=== PATIENT | male | born 1945 | race Caucasian/White ===

== ENCOUNTER 2018-01-08 07:47 | Outpatient (CLI) | payer MEDICARE, BC ==
[~2018-01-08] VITALS: Ht 177.8 cm; Wt 80.9 kg
--- NOTE | ~2018-01-08 | HEMODYNAMI ---
PATIENT:NIKKY MALIK MEDICAL RECORD: [id number] : 41 LOCATION:[facility] ADMISSION DATE: 01/08/18 Generatedon:01/08/201810:00 Patient name: NIKKY MALIK Patient #: [id number] SSN: : 1945 Date of study: 01/08/2018 Page: Of Hemodynamic Procedure Report Patient Data Patient Demographics Procedure consent was obtained First Name: NIKKY Gender: Male Last Name: KING : 1945 [facility] Initial: RON Age: 72 year(s) Patient #: [id number] Race: Unknown Additional ID: [id number] Contact details Address: [address] [place] [address] ROAD State: [place] City: [place] Zip code: [address] Past Medical History Allergies Allergen Reaction Date Comments Reported Morphine 01/08/2018 Admission Admission Data Admission Date: 01/08/2018 Admission Time: 7:47 Lab Results Lab Result Date: 01/08/2018 Lab Result Time: 0:00 Biochemistry Name Units Result Min Max BUN mg/dl 16 --(---*)-- 7 18 Creatinine mg/dl 1.2 --(---*)-- 0.6 1.3 CBC Name Units Result Min Max Hemoglobin g/dl 16 --(--*-)-- 13.5 17.5 Procedure Procedure Types Cath Procedure Diagnostic Procedure LHC LHC w/Coronaries FFR/IVUS Intra-Coronary IVUS Initial Sedation Charges Moderate Sedation up to 15 minutes PCI Procedure Coronary Stent Coronary Stent Initial Peripheral Cath Diagnostic Procedure Cath Peripheral Kcwdv-Wsfhoyu-Upy-Off Procedure Description Procedure Date Procedure Date: 01/08/2018 Procedure Start Time: 9:35 Procedure End Time: 9:56 Procedure Staff Name Function Ruben Rodriguez MD Performing Physician Pillo Lima RT Scrub Thuy Bishop RT Monitor Deja Arnett RN Nurse Procedure Data Cath Procedure Fluoroscopy Diagnostic fluoroscopy Total fluoroscopy Time: 4.5 time: 4.5 min min Diagnostic fluoroscopy Total fluoroscopy dose: 633 dose: 633 mGy mGy Contrast Material Contrast Material Type Amount (ml) Isovue 370 135 Entry Location Entry Primary Successful Side Size Upsize Upsize Entry Closure Succes sful Closure Location (Fr) 1 (Fr) 2 (Fr) Remarks Device Remarks Femoral Right 5 Fr 6 Fr Exoseal artery Short Estimated blood loss: 10 ml Diagnostic catheters Device Type Used For End Catheter Placement MULTIPACK Pigtail 5 Fr Procedure catheter MULTIPACK JL 4.0 5Fr Procedure catheter MULTIPACK 3DRC 5Fr Procedure catheter Procedure Complications No complications Procedure Medications Medication Administration Route Dosage Oxygen NC 2 l/min Lidocaine 2% added to field 20 Heparin Flush Bag added to field 2 bags (1000units/500ml NS) 0.9% NaCl I.V. 100 ml/hr Versed I.V. 1 mg Fentanyl I.V. 50 mcg Heparin Bolus I.V. 4000 units Versed I.V. 1 mg Fentanyl I.V. 50 mcg Lopressor I.V. 5 mg Nitro [place] S.L. 400 Hemodynamics Rest HGB: 16 (g/dl) Heart Rate: 73 (bpm) Snapshots Pre Cath Intra NCS Post Cath Vital Signs Time Heart Resp SPO2 etCO2 NIBP (mmHg) Rhythm Pain Sedation Rate (ipm) (%) (mmHg) Status Level (bpm) 9:23:13 80 15 100 0 192/114(180) NSR 0 (11) 10(A) , No pain 9:28:06 74 20 99 33.1 202/101(164) NSR 0 (11) 10(A) , No pain 9:33:51 73 9 99 35.3 200/95(158) NSR 0 (11) 10(A) , No pain 9:38:44 81 10 96 0 183/105(145) NSR 0 (11) 9(A) , No pain 9:44:25 93 11 98 37.6 206/99(153) NSR 0 (11) 9(A) , No pain 9:49:18 100 12 97 33.1 195/100(144) NSR 0 (11) 9(A) , No pain 9:54:09 95 14 98 14.3 197/102(145) NSR 0 (11) 9(A) , No pain 9:59:02 77 13 97 32.3 174/99(146) NSR 0 (11) 10(A) , No pain Medications Time Medication Route Dose Verified Delivered Reason Notes Effectiveness by by 9:24:09 Oxygen NC 2 Rubenraul Short used for l/min Jennifer Arnett RN procedure 9:24:17 Lidocaine 2% added 20ml Rubenraul Miranda for local to vial Jennifer Rodriguez MD anesthetic field 9:24:24 Heparin Flush added 2 bags Ruben Miranda used for Bag to Jennifer Rodriguez MD procedure (1000units/500ml field NS) 9:24:34 0.9% NaCl I.V. 100 Ruben Short Per physician ml/hr Jennifer Arnett RN 9:33:12 Versed I.V. 1 mg Ruben Short for sedation Jennifer Arnett RN 9:33:18 Fentanyl I.V. 50 mcg Ruben Short for sedation Jennifer Arnett RN 9:40:32 Versed I.V. 1 mg Ruben Short for sedation Jennifer Arnett RN 9:40:35 Fentanyl I.V. 50 mcg Ruben Short for sedation Jennifer Arnett RN 9:44:23 Heparin Bolus I.V. 4000 Ruben Short for verifi ed units Jennifer Arnett RN anticoagulation with dr rodriguez 9:54:15 Lopressor I.V. 5 mg Ruben Short for Jennifer Arnett RN hypertension 9:58:14 Nitro [place] S.L. 400 Ruben Short for 1200 m cg mcg x Jennifer Arnett RN hypertension total 3 sprays Procedure Log Time Note 9:10:25 Deja Arnett RN sent for patient. Start room use. 9:10:59 Signed procedure consent form obtained from patient. 9:11:16 H&P Date Dictated: 01/07/2018 Within 30 days and on chart., H&P Addendum completed by physician on day of procedure. (MUST COMPLETE FOR ALL OUTPATIENTS). 9:11:20 Time tracking: Regular hours (M-F 7:00 - 5:00) 9:11:23 Plan of Care:Hemodynamics will remain stable., Cardiac rhythm will remain stable., Comfort level will be maintained., Respiratory function will remain adequate., Patient/ family verbilizes understanding of procedure., Procedure tolerated without complication., Recovers from procedure without complications.. 9:16:23 Patient received from Pre/Post Procedure Room to CCL 1 Alert and oriented. Tansferred to table in Supine position. 9:16:24 Warm blankets applied, and chaka hugger turned on for patient comfort. 9:16:24 Correct patient and procedure confirmed by team. 9:16:25 ECG and BP/O2 sat monitors applied to patient. 9:21:44 Vital chart was started 9:21:45 Baseline sample Acquired. 9:21:57 Pre-procedure instructions explained to patient. 9::58 Pre-op teaching completed and patient verbalized understanding. 9:22:02 Family in patients room. 9:22:04 Patient NPO since Midnight. 9:22:11 Patient allergic to Morphine 9:22:14 Is the patient allergic to Iodine/contrast media? No. 9:24:09 Oxygen 2 l/min NC was administered by Deja Arnett RN; used for procedure; 9:24:17 Lidocaine 2% 20ml vial added to field was administered by Ruben Rodriguez MD; for local anesthetic; 9:24:24 Heparin Flush Bag (1000units/500ml NS) 2 bags added to field was administered by Ruben Rodriguez MD; used for procedure; 9:24:34 0.9% NaCl 100 ml/hr I.V. was administered by Deja Arnett RN; Per physician; 9:24:59 Is patient on blood thinner?Yes 9:25:03 ACC The patient was administered the following blood thiners within the last 24 hours: ACCPlavix 9:25:05 Patient diabetic? No. 9:26:20 Previous problem with sedation/anesthesia? No ? 9:26:21 Snore? Yes 9:26:23 Sleep apnea? No 9:26:24 Deviated septum? No 9:26:25 Opens mouth fully? Yes 9:26:26 Sticks out tongue? Yes 9:26:28 Airway obstruction? No ? 9:26:32 Dentures? Yes IN TIGHT 9:28:59 Pre procedure: right dorsailis pedis pulse 1+ Palpable, but thready & weak; easily obliterated 9:29:02 Pre procedure: left dorsailis pedis pulse 2+ Normal; easily identifiable; not easily obliterated 9:29:04 Patient pain scale 0/10 ?. 9:29:15 IV patent on arrival in left hand with 0.9% NaCl at KVO. 9:30:30 Lab Result : BUN 16 mg/dl 9:30:30 Lab Result : Creatinine 1.2 mg/dl 9:30:30 Lab Result : Hemoglobin 16 g/dl 9:30:34 Lab results completed and on chart. 9:30:37 Bilateral groins area was prepped with chlora-prep and draped in sterile fashion 9:30:38 Alarms reviewed by R. N. 9:30:39 Sharps counted by scrub and verified by R.N. 9:30:54 Use device set Femoral Dx 9:30:55 ACIST Syringe (48554) opened to sterile field. 9:30:56 Bag Decanter (2002S) opened to sterile field. 9:30:57 ACIST Hand Control (10788) opened to sterile field. 9:30:58 ACIST Manifold (94256) opened to sterile field. 9:30:58 Tegaderm 4 x 4 (1626W) opened to sterile field. 9:31:00 Medline Cath Pack ([id number]) opened to sterile field. 9:31:00 DIAGNOSTIC WIRE .035 260cm J wire (634321) opened to sterile field. 9:31:03 SHEATH Prelude 5Fr 0.035 (GXG-4B-38-035) opened to sterile field. 9:31:05 DIAGNOSTIC Multipack 5Fr catheter set (PN9335) opened to sterile field. 9:31:58 --------ALL STOP TIME OUT------ 9:31:59 Final Timeout: patient, procedure, and site verified with staff and physician. All members of the team are in agreement. 9:32:01 Bilateral groins site verified by team. 9:32:05 Physical assessment completed. ASA score P 2 - A patient with mild systemic disease as per Ruben Rodriguez MD. 9:32:09 Sedation plan: IV Moderate Sedation Medication:Versed, Fentanyl 9:32:37 Procedure type changed to Cath procedure, Diagnostic procedure, LHC, LHC w/Coronaries, FFR/IVUS, Intra-Coronary IVUS Initial, Sedation Charges, Moderate Sedation up to 15 minutes, PCI procedure, Coronary Stent, Coronary Stent Initial, Peripheral Cath Diagnostic Procedure, Cath Peripheral, Txbdg-Eatphgy-Ocn-Off 9:33:12 Versed 1 mg I.V. was administered by Buffie Arnett RN; for sedation; 9:33:18 Fentanyl 50 mcg I.V. was administered by Deja Arnett RN; for sedation; 9:34:35 Zero performed for pressure channel P1 9:34:59 Baseline sample Acquired. 9:35:09 Rhythm: sinus rhythm 9:35:11 Full Disclosure recording started 9:35:37 Procedure started. 9:35:42 Local anesthetic to right femoral artery with Lidocaine 2% by Ruben Rodriguez MD.INITIAL ACCESS ONLY 9:36:23 A 5 Fr sheath was inserted into the Right Femoral artery 9:36:46 A MULTIPACK Pigtail 5 Fr catheter was advanced over the wire and used for Procedure. 9:37:11 LV gram done using CRUZ 9:37:15 Injector settings: Ml/sec: 10, Volume: 20, 9:37:50 EF : 55 % 9:38:00 CATHETER PULLED DOWN FOR AFRO 9:38:12 Abdominal angiogram w/ runoff was performed. 9:38:29 Left leg runoff performed. 9:38:53 Right leg runoff performed. 9:40:00 Catheter removed. 9:40:10 A MULTIPACK JL 4.0 5Fr catheter was advanced over the wire and used for Procedure. 9:40:32 Versed 1 mg I.V. was administered by Deja Arnett RN; for sedation; 9:40:35 Fentanyl 50 mcg I.V. was administered by Deja Arnett RN; for sedation; 9:41:06 LCA angiography performed. 9:41:51 Catheter removed. 9:42:00 A MULTIPACK 3DRC 5Fr catheter was advanced over the wire and used for Procedure. 9:42:13 INFLATOR Merit BasixCompak (NZ4311) opened to sterile field. 9:42:18 SHEATH 6FR [place] (OTD802) opened to sterile field. 9:42:23 CHOICE PT Extra Support 182cm wire ([id number]) opened to sterile field. 9:43:03 RCA angiography performed. 9:43:12 Catheter removed. 9:43:21 GUIDE 6FR HS I SH catheter ([id number]) opened to sterile field. 9:43:27 [place] IVUS Catheter (74267Z) opened to sterile field. 9:43:34 Sheath upsized to a 6 Fr Short. 9:44:05 6 Fr HS1 SH guide catheter was inserted over the wire 9:44:23 Heparin Bolus 4000 units I.V. was administered by Deja Arnett RN; for anticoagulation; verified with dr rodriguez 9:44:55 CHOICE ES 182 wire advanced. 9:45:18 Wire advanced across lesion. 9:47:40 IVUS catheter advanced over wire. 9:47:43 IVUS pass to RCA lesion performed. 9:47:44 IVUS catheter removed over wire. 9:49:04 Place stent Inflation Number: 1 A TATE RX 3.0 x 38 stent ([id number]) was prepped and advanced across the Mid RCA. The stent was deployed at 21 VALERI for 0:10 (min:sec). 9:49:40 Stent catheter was removed intact over wire. 9:50:49 Place stent Inflation Number: 1 A TATE RX 3.0 x 22 stent ([id number]) was prepped and advanced across the Prox RCA. The stent was deployed at 21 VALERI for 0:10 (min:sec). 9:51:28 Stent catheter was removed intact over wire. 9:51:28 Wire removed. 9:51:29 Guide catheter removed. 9:53:26 EXOSEAL 6Fr (EX600) opened to sterile field. 9:53:40 Sheath removed intact; hemostasis achieved with Exoseal to the Right Femoral artery. 9:53:43 Procedure ended.(Physican Out) 9:53:52 Fluoroscopy time 04.50 minutes. 9:53:58 Fluoroscopy dose: 633 mGy 9:53:58 Flurop Dose total: 633 9:54:03 Contrast amount:Isovue 370 135ml. 9:54:04 Sharps counted by scrub and verified by R.N. 9:54:07 Post-op/insertion site Right Femoral artery dressed using a 4 x 4 and Tegaderm. 9:54:12 Post right femoral artery:stable, soft, clean and dry 9:54:15 Lopressor 5 mg I.V. was administered by Deja Arnett RN; for hypertension; 9:54:21 Post-procedure physical assessment completed. ASA score P 2 - A patient with mild systemic disease as per Ruben Rodriguez MD. 9:54:27 Post procedure rhythm: unchanged. 9:54:29 Estimated blood loss: 10 ml 9:54:31 Post procedure instruction explained to patient.Patient verbalizes understanding. 9:54:31 Patient needs reinforcement of post procedure teaching. 9:56:22 Procedure and supply charges have been captured, reviewed, submitted and are correct. 9:56:24 Procedure Complication : No complications 9:56:26 Vital chart was stopped 9:56:27 See physician's report for complete and final results. 9:56:29 Report given to Pre/Post Procedure Room. 9:56:32 Patient transfered to Pre/Post Procedure Room with Bed. 9:56:34 Procedure ended. 9:56:34 Full Disclosure recording stopped 9:56:37 End room use (Document Last) 9:58:14 Nitro [place] 400 mcg x 3 sprays S.L. was administered by Deja Arnett RN; for hypertension; 1200 mcg total Intervention Summary Intervention Notes Time ActionType Lesion and Equipment Used Action# Pressure Duration Attributes 9:49:04 Place stent Mid RCA TATE RX 3.0 x 1 21 00:10 38 stent ([id number]) 9:50:49 Place stent Prox RCA TATE RX 3.0 x 1 21 00:10 22 stent ([id number]) Device Usage Item Name Manufacture Quantity Catalog Number Hospital Part Current Minimal Lot# / Charge Number Stock Stock Serial# Code ACIST Syringe Acist 1 00457 984113 120952 146933 20 (38860) Medical Systems Inc Bag Decanter Microtek 1 2001S 687477 94516 803595 5 (2001S) Medical Inc. ACIST Hand Acist 1 36243 328905 553984 535400 5 Control (24002) Medical Systems Inc ACIST Manifold Acist 1 02187 311242 037312 230842 5 (13230) Medical Systems Inc Tegaderm 4 x 4 3M 1 1626W 972772 848583 990730 5 (1626W) Medline Cath Cardinal 1 [id number] 302879 01418 298720 5 Pack Health ([id number]) DIAGNOSTIC WIRE [facility] [place] 1 067841 741765 694186 846381 30 .035 260cm J wire (528423) SHEATH Prelude Merit 1 XYB-6M-89-035 057333 378218 397496 5 5Fr 0.035 Medical (CZX-3C-68-035) DIAGNOSTIC Cardinal 1 JE0786 426636 71254 604804 30 Multipack 5Fr Health catheter set (UI5362) MULTIPACK Cardinal 1 298992 5 Pigtail 5 Fr Health catheter MULTIPACK JL Cardinal 1 657392 5 4.0 5Fr Health catheter MULTIPACK 3DRC Cardinal 1 876060 5 5Fr catheter Health INFLATOR Merit Merit 1 QJ5511 366355 848615 815177 15 InContext Solutions Medical (BA4229) SHEATH 6FR Terumo 1 UXO640 344358 536238 308562 40 [place] (NVG284) CHOICE PT Extra [place] 1 [id number] 598993 466478 029547 5 Support 182cm Scientific wire ([id number]) GUIDE 6FR HS I Medtronic 1 [id number] 683272 14229 724146 1 SH catheter (ZA6EVIVU) [place] 1 00280U 707392 378009 232050 8 [place] IVUS Catheter (98666D) TATE RX 3.0 x Medtronic 1 [id number] 966361 6460040 782103 5 [id number] 38 stent ([id number]) TATE RX 3.0 x Medtronic 1 [id number] 208064 9996679 901581 5 [id number] 22 stent ([id number]) EXOSEAL 6Fr Cardinal 1 EX600 409627 983366 902441 10 (EX600) Health Signature Audit [place] Stage Time Signature Unsigned Intra-Procedure 01/08/2018 Thuy Bishop 10:00:16 AM RT(R) Signatures Monitor : Thuy Bishop Signature : RT Date : Time : [facility] [address] [place] [address]
--- NOTE | ~2018-01-08 | OP ---
PATIENT NAME: NIKKY MALIK MEDICAL RECORD: [id number] :41 LOCATION:D.CAT ADMISSION DATE: SURGEON: ELIZABETH ENGLISH MD DATE OF OPERATION: 01/08/2018 PROCEDURES: 1. PTCA stent RCA. 2. Intravascular ultrasound. 3. Left heart catheterization. 4. Selective angiography. 5. Left ventriculogram. INDICATION: Angina and coronary artery disease. PROCEDURE IN DETAIL: After informed consent was obtained and after a detailed description of the risks, benefits as well as alternative therapies, the patient elected to proceed with angiogram and angioplasty. The right femoral area was prepped and draped in normal sterile fashion. The right femoral artery was cannulated via modified Seldinger technique with placement of 6-Cypriot sheath. All catheters exchanged through this sheath. FINDINGS: The left ventriculogram was performed in standard 30-degree CRUZ view, reveals good cardiac wall motion throughout all segments. Overall ejection fraction estimated at 55% to 60%. SELECTIVE CORONARY ANGIOGRAPHY: 1. Left main is with no significant angiographic disease. 2. Left anterior descending has a long area of 80% stenosis in the mid vessel. 3. Left circumflex has moderate irregularities, but no flow-limiting stenosis. 4. Right coronary artery has a long area of 70% to 80% stenosis throughout the proximal and mid vessel. PTCA STENT OF THE RCA: Stents used were 3.0 x 38 and 3.0 x 22 both Robert stents. Result was 0% residual stenosis. OVERALL IMPRESSION: Successful PTCA stent of the RCA going from 80% initial stenosis to 0% residual. PLAN: For MOTOR EQUIPMENT LIEUTENANT stent of the LAD in the near future. TRANSINT:[id number] Voice Confirmation ID: [id number] DOCUMENT ID: [id number] ELIZABETH ENGLISH MD at 1730 CC: [id number] DICTATION DATE: 01/08/18 1002 URBAN DESIGNER: 01/08/18 1232 DEP CLI 01/08/[address] [address]
--- NOTE | ~2018-01-08 | OP ---
PATIENT NAME: NIKKY MALIK MEDICAL RECORD: [id number] :41 LOCATION:D.CAT ADMISSION DATE: SURGEON: ELIZABETH ENGLISH MD DATE OF OPERATION: 01/08/2018 PROCEDURES: 1. Aortofemoral runoff. 2. Abdominal aortography. INDICATION: Claudication and peripheral vascular disease. PROCEDURE IN DETAIL: After informed consent was obtained and after a detailed description of risks, benefits as well as alternative therapies, the patient elected to proceed with angiogram and aortofemoral runoff. The right femoral area had a preexisting sheath from coronary intervention. All catheters exchanged through this sheath. FINDINGS: Abdominal aortography was performed. The catheter was pulled down for aortofemoral runoff. Abdominal aortography reveals no significant abdominal aortic disease, no dissection or aneurysmal formation. No evidence of renal artery stenosis. RIGHT LEG: A. Iliac: The common internal and external iliacs have moderate irregularities, but no flow-limiting stenosis. B. Femoral system: The common superficial and deep femoral have moderate irregularities, but no flow-limiting stenosis. C. Popliteal and infrapopliteal vessels are widely patent. There is 3-vessel runoff to the foot, although mildly diffusely diseased. LEFT LEG: A. Iliac: The common internal and external iliacs have moderate irregularities, but no flow-limiting stenosis. B. Femoral system: The common superficial and deep femoral have moderate irregularities, but no flow-limiting stenosis. C. Popliteal and infrapopliteal vessels are widely patent. There is 3-vessel runoff to the foot, although mildly diffusely diseased. OVERALL IMPRESSION: Minimal peripheral vascular disease is present. No flow limiting stenosis, leg pain is nonarteriovascular in etiology. TRANSINT:[id number] Voice Confirmation ID: [id number] DOCUMENT ID: [id number] ELIZABETH ENGLISH MD at 1730 CC: [id number] DICTATION DATE: 01/08/18 1002 WOOD PLANER: 01/08/18 1232 DEP CLI 01/08/18 [place] [id number] [place] [id number]
[2018-01-08 08:30] VITALS: Ht 177.8 cm; Wt 80.9 kg
[2018-01-08 08:38] LABS: BASOPHILS 0.9 % (0-2); EOSINOPHILS 2.7 % (0-7); HEMATOCRIT 45.6 % (42.0-54.0); IMMATURE GRANULOCYTES 0.3 % (0-5); LYMPHOCYTES 28.4 % (15-50); MCH 31.6 pg (26.0-34.0); MCHC 35.1 g/dL (31.0-37.0); MCV 90.1 fL (80.0-100.0); MEAN PLATELET VOLUME 10.3 fL (7.4-10.4); MONOCYTES 6.6 % (2-11); NEUTROPHILS 61.1 % (40-80); PLATELET COUNT 218 10x3/uL (130-400); RBC 5.06 10x6/uL (4.20-6.10); RDW 13.2 % (11.5-14.5); WBC 7.5 10x3/uL (4.8-10.8)
[2018-01-08] MEDS ORDERED: COZAAR25 MG PO (08:38)
[2018-01-08] MEDS ORDERED: CARDURA4 MG PO (08:38)
[2018-01-08] MEDS ORDERED: BAYER CHEWABLE81 MG PO (08:39)
[2018-01-08] MEDS ORDERED: PAMELOR10 MG PO (08:39)
[2018-01-08] MEDS ORDERED: PRILOSEC2.5 MG PO (08:39)
[2018-01-08] MEDS ORDERED: MAG-OXIDE400 MG PO (08:40)
[2018-01-08 08:47] LABS: ANION GAP 13.9 mmol/L (8-16); CALCIUM 8.6 mg/dL (8.5-10.1); CARBON DIOXIDE 25.8 mmol/L (21.0-32.0); CREATININE - SERUM 1.2 mg/dL (0.6-1.3); POTASSIUM - SERUM 3.7 mmol/L (3.5-5.1)
[2018-01-08] MEDS ORDERED: PLAVIX75 MG PO (09:47)
[2018-01-08] MEDS ORDERED: NIFEDIPINE ER90 MG PO (10:28)
[2018-01-08] MEDS ORDERED: TOPROL XL100 MG PO (10:28)
== END 2018-01-08 14:00 | disposition home or self-care (01) ==
LOC: D.CATH 07:47 → EDBD 07:47 → D.CATH 10:00
PROVIDERS: Internal Medicine Interventional Cardiology
DX: I25.119 Atherosclerotic heart disease of native coronary artery with unspecified angina pectoris (principal); M79.605 Pain in left leg; M79.604 Pain in right leg; Z01.812 Encounter for preprocedural laboratory examination
CPT/HCPCS: 92978; 93458; C9600

== ENCOUNTER → 2018-01-11 08:53 | Outpatient (CLI) | payer MEDICARE, BC ==
[~2018-01-11] VITALS: Ht 177.8 cm; Wt 80.9 kg
--- NOTE | ~2018-01-11 | HP ---
PATIENT: NIKKY PELAEZ MEDICAL RECORD: [id number] ACCOUNT: [id number] LOCATION:NOAH : 41 ADMISSION DATE: 01/11/18 HISTORY AND PHYSICAL EXAMINATION ADMITTING DIAGNOSES: 1. Angina. 2. Coronary artery disease. 3. Recent percutaneous transluminal coronary angioplasty stent of the right coronary artery with concomitant disease of the left anterior descending. HISTORY OF PRESENT ILLNESS: Mr. Pelaez presents with anginal symptomatology, found to have 2-vessel coronary artery disease of the RCA and LAD and underwent successful PTCA stent of the RCA, now brought back for PTCA stent of the LAD. REVIEW OF SYSTEMS: The patient reports easy bruising but reports no swollen glands. The patient reports no fever, no night sweats, no significant weight gain, no significant weight loss. No significant exercise tolerance. The patient reports no dry eyes, no irritation, no vision change. Patient reports no difficulty hearing and no ear pain. Patient reports no frequent nose bleeds or nose and sinus problems. Patient reports on arm pain on exertion. No shortness of breath while lying down. No history of heart murmur. Patient reports no cough, no wheezing or coughing up blood. Patient reports no abdominal pain, no vomiting. Normal appetite. No diarrhea and not vomiting blood. No nausea and no constipation. Patient reports no incontinence. No difficulty urinating. No hematuria. No increased frequency. Patient reports no muscle aches. No weakness, no arthralgias, no back pain. No swelling of the extremities. Patient reports no abnormal mole, no jaundice, no rashes. Reports no loss of consciousness. No weakness and no numbness. No seizures, dizziness, or headaches. The patient reports no depression, no sleep disturbance, feeling safe in a relationship and no alcohol abuse. Patient reports on fatigue. Reports no runny nose or sinus pressure. No itching, no hives, and no frequent sneezing. PHYSICAL EXAMINATION: GENERAL APPEARANCE: Well-nourished, well-developed, appears stated age. Level of distress, comfortable. PSYCHIATRIC: Mental status, alert, normal affect. Orientation, oriented to time, place and person. EYES: Lids and conjunctiva, noninjected. No discharge, no pallor. ENT: Lips, teeth, gums, normal dentition. Oropharynx, no cyanosis, no pallor. NECK: Carotid arteries, bilateral normal upstroke, no bruits, no thrills. JUGULAR VEINS: No jugular venous pressure or distention. CERVICAL LYMPH NODES: Nontender, nonenlarged. THYROID: Not enlarged. Nontender. No nodules. LUNGS: Respiratory effort, unlabored. CHEST: Normal curvature. No thoracic deformity. No chest wall tenderness. Percussion, resonant. Auscultation, clear. No wheezes, no rales, no rhonchi. CARDIOVASCULAR: Precordial exam, nondisplaced. No heaves or pericardial thrills. Rate and rhythm, regular. Heart sounds, normal S1, normal S2. No S3, no gallop, no rub. Systolic murmur, not heard. Diastolic murmur, not heard. EXTREMITIES: No cyanosis, no edema. Peripheral pulses, full and equal in all extremities, except as noted. No bruits appreciated. ABDOMEN: Soft, nondistended. Normal aorta. No bruit. Nontender. No masses. Liver, nontender, no hepatomegaly. Spleen, nontender, no splenomegaly. HISTORY AND PHYSICAL [id number] NIKKY PELAEZ MUSCULOSKELETAL: No joint tenderness. No joint swelling. No erythema. NEUROLOGICAL: Normal gait, normal strength, normal tone. SKIN: Warm and dry. OVERALL IMPRESSION: Significant disease of the left anterior descending. We will proceed with transcatheter revascularization of the left anterior descending. TRANSINT:[id number] Voice Confirmation ID: [id number] DOCUMENT ID: [id number] ELIZABETH ENGLISH MD at 1630 CC: [id number] DICTATION DATE: 01/11/18 0847 SHOW HOST OR HOSTESS: 01/11/18 0917 [facility] CLI 01/11/18 [place] [id number]
--- NOTE | ~2018-01-11 | OP ---
PATIENT NAME: NIKKY MALIK MEDICAL RECORD: [id number] :41 LOCATION:D.CAT ADMISSION DATE: SURGEON: ELIZABETH ENGLISH MD DATE OF OPERATION: 01/11/2018 PROCEDURES: 1. PTCA stent LAD. 2. Intravascular ultrasound of the LAD. 3. Selective coronary angiography. INDICATION: Angina and coronary artery disease. PROCEDURE IN DETAIL: After informed consent was obtained and after a detailed description of the risks, benefits as well as alternative therapies, the patient elected to proceed with angiogram and angioplasty. The right radial area was prepped and draped in normal sterile fashion. Right radial artery was cannulated via modified Seldinger technique with placement of 6-Korean sheath. All catheters exchanged through this sheath. FINDINGS: The left anterior descending has a long area of greater than 70% stenosis in the mid vessel. This was addressed with a 3.0 x 38 mm Paul stent. Result was 0% residual stenosis. OVERALL IMPRESSION: Successful percutaneous transluminal coronary angioplasty stent of the left anterior descending going from greater than 70% initial stenosis confirmed by intravascular ultrasound to 0% residual stenosis. TRANSINT:[id number] Voice Confirmation ID: [id number] DOCUMENT ID: [id number] ELIZABETH ENGLISH MD at 1630 CC: [id number] DICTATION DATE: 01/11/18 1126 INTERNET MARKETING MANAGER: 01/11/18 1211 DEP CLI 01/11/18 [facility] [address] [place] [address]
--- NOTE | ~2018-01-11 | HEMODYNAMI ---
PATIENT:NIKKY MALIK MEDICAL RECORD: [id number] : 41 LOCATION:[facility]UL[facility] ADMISSION DATE: 01/11/18 Generatedon:01/11/201811:27 Patient name: NIKKY MALIK Patient #: [id number] SSN: : 1945 Date of study: 01/11/2018 Page: Of Hemodynamic Procedure Report Patient Data Patient Demographics Procedure consent was obtained First Name: NIKKY Gender: Male Last Name: KING : 1945 [facility] Initial: RON Age: 72 year(s) Patient #: [id number] Race: Unknown Additional ID: [id number] Contact details Address: [address] [place] [address] ROAD State: [place] City: [place] Zip code: [address] Past Medical History Allergies Allergen Reaction Date Comments Reported Morphine 01/08/2018 Admission Admission Data Admission Date: 01/11/2018 Admission Time: 8:53 Admit Source: Other Lab Results Lab Result Date: 01/08/2018 Lab Result Time: 0:00 Biochemistry Name Units Result Min Max BUN mg/dl 16 --(---*)-- 7 18 Creatinine mg/dl 1.2 --(---*)-- 0.6 1.3 CBC Name Units Result Min Max Hemoglobin g/dl 16 --(--*-)-- 13.5 17.5 Procedure Procedure Types Cath Procedure Diagnostic Procedure FFR/IVUS Intra-Coronary IVUS Initial PCI Procedure Coronary Stent Coronary Stent Initial Procedure Description Procedure Date Procedure Date: 01/11/2018 Procedure Start Time: 11:15 Procedure End Time: 11:27 Procedure Staff Name Function Ruben Rodriguez MD Performing Physician Debra Gonzales RT Monitor Pillo Lima RT Scrub James Franco RN Nurse Procedure Data Cath Procedure Fluoroscopy Diagnostic fluoroscopy Total fluoroscopy Time: 3 time: 3 min min Diagnostic fluoroscopy Total fluoroscopy dose: 389 dose: 389 mGy mGy Contrast Material Contrast Material Type Amount (ml) Isovue 370 58 Entry Location Entry Primary Successful Side Size Upsize Upsize Entry Closure Ordonez ccessful Closure Location (Fr) 1 (Fr) 2 (Fr) Remarks Device Remarks Radial Right 6 Fr Mechanical artery Short Compression Estimated blood loss: 5 ml Procedure Complications No complications Procedure Medications Medication Administration Route Dosage Oxygen etCO2 Nasal cannula 2 l/min Heparin Flush Bag added to field 2 bags (1000units/500ml NS) 0.9% NaCl I.V. 100 ml/hr Radial Cocktail added to field 1 syringe (Verapomil 2mg/Nitro 400mcg/Heparin 1500units) Fentanyl I.V. 50 mcg Versed I.V. 1 mg Fentanyl I.V. 50 mcg Versed I.V. 1 mg Radial Cocktail I.A. 1 syringe (Verapomil 2mg/Nitro 400mcg/Heparin 1500units) Heparin Bolus I.V. 4000 units Hemodynamics Rest HGB: 16 (g/dl) Heart Rate: 96 (bpm) Snapshots Pre Cath Intra NCS Post Cath Vital Signs Time Heart Resp SPO2 etCO2 NIBP (mmHg) Rhythm Pain Sedation Rate (ipm) (%) (mmHg) Status Level (bpm) 10:50:07 95 16 98 25.5 183/76(131) NSR 0 (11) 10(A) , No pain 10:54:29 90 17 98 25.5 168/92(137) NSR 0 (11) 10(A) , No pain 10:58:49 87 16 98 18.8 166/88(136) NSR 0 (11) 10(A) , No pain 11:03:11 90 16 98 24 172/96(134) NSR 0 (11) 10(A) , No pain 11:07:31 90 17 97 15 169/93(131) NSR 0 (11) 10(A) , No pain 11:11:47 87 17 99 19.5 163/89(127) NSR 0 (11) 10(A) , No pain 11:16:11 91 15 97 25.5 171/96(139) NSR 0 (11) 9(A) , No pain 11:20:21 94 27 95 29.3 140/84(126) NSR 0 (11) 9(A) , No pain 11:24:40 95 21 95 24 153/83(124) NSR 0 (11) 9(A) , No pain 11:26:30 88 12 97 17.2 156/79(124) NSR 0 (11) 9(A) , No pain Medications Time Medication Route Dose Verified Delivered Reason Not es Effectiveness by by 10:50:57 Oxygen etCO2 2 l/min Ruben Ramirez Per physician Nasal Jennifer Franco RN cannula 10:51:04 Heparin Flush added 2 bags Ruben Ramirez used for Bag to Jennifer Franco RN procedure (1000units/500ml field NS) 10:51:11 0.9% NaCl I.V. 100 Ruben Ramirez Per physician ml/hr Jennifer Franco RN 10:51:18 Radial Cocktail added 1 Ruben Ramirez used for (Verapomil to syringe Jennifer Franco RN procedure 2mg/Nitro field 400mcg/Heparin 1500units) 11:12:10 Fentanyl I.V. 50 mcg Ruben Ramirez for sedation Jennifer Franco RN 11:12:16 Versed I.V. 1 mg Ruben Ramirez for sedation Jennifer Franco RN 11:15:35 Fentanyl I.V. 50 mcg Ruben Ramirez for sedation Jennifer Franco RN 11:15:39 Versed I.V. 1 mg Ruben Ramirez for sedation Jennifer Franco RN 11:15:49 Radial Cocktail I.A. 1 Ruben Miranda for (Verapomil syringe Jennifer Rodriguez MD vasodilation 2mg/Nitro 400mcg/Heparin 1500units) 11:16:13 Heparin Bolus I.V. 4000 Ruben Ramirez for units Jennifer Franco RN anticoagulation Procedure Log Time Note 10:16:36 Informed consent obtained and on chart 10:16:40 Admit Source: Other 10:16:55 Diagnostic Cath status Elective 10:16:56 Time tracking: Regular hours (M-F 7:00 - 5:00) 10:16:59 Plan of Care:Hemodynamics will remain stable., Cardiac rhythm will remain stable., Comfort level will be maintained., Respiratory function will remain adequate., Patient/ family verbilizes understanding of procedure., Procedure tolerated without complication., Recovers from procedure without complications.. 10:20:20 Pillo MEDELLIN(R) sent for patient. Start room use. 10:36:42 Patient received from Pre/Post Procedure Room to CCL 2 Alert and oriented. Tansferred to table in Supine position. 10:36:43 Warm blankets applied, and chaka hugger turned on for patient comfort. 10:36:44 Correct patient and procedure confirmed by team. 10:36:45 ECG and BP/O2 sat monitors applied to patient. 10:36:45 Full Disclosure recording started 10:48:41 Vital chart was started 10:50:09 Baseline sample Acquired. 10:50:12 Rhythm: sinus rhythm 10:50:57 Oxygen 2 l/min etCO2 Nasal cannula was administered by James Franco RN; Per physician; 10:50:58 H&P Date Dictated: 01/11/2018 Within 30 days and on chart., H&P Addendum completed by physician on day of procedure. (MUST COMPLETE FOR ALL OUTPATIENTS). 10:50:59 Pre-procedure instructions explained to patient. 10:51:00 Pre-op teaching completed and patient verbalized understanding. 10:51:02 Family in patients room. 10:51:03 Patient NPO since Midnight. 10:51:04 Heparin Flush Bag (1000units/500ml NS) 2 bags added to field was administered by James Franco RN; used for procedure; 10:51:11 0.9% NaCl 100 ml/hr I.V. was administered by James Franco RN; Per physician; 10:51:18 Radial Cocktail (Verapomil 2mg/Nitro 400mcg/Heparin 1500units) 1 syringe added to field was administered by James Franco RN; used for procedure; 10:52:18 Is the patient allergic to Iodine/contrast media? No. 10:52:19 Is patient on blood thinner?Yes 10:52:22 ACC The patient was administered the following blood thiners within the last 24 hours: ACCAspirin, ACCPlavix 10:52:23 Patient diabetic? No. 10:52:26 Previous problem with sedation/anesthesia? No ? 10:52:27 Snore? Yes 10:52:28 Sleep apnea? No 10:52:29 Deviated septum? No 10:52:30 Opens mouth fully? Yes 10:52:31 Sticks out tongue? Yes 10:52:32 Airway obstruction? No ? 10:52:35 Dentures? Yes IN 10:52:41 Pre procedure: left dorsailis pedis pulse 2+ Normal; easily identifiable; not easily obliterated 10:52:42 Modified Jesus's test Ulnar < 7 seconds 10:52:45 Patient pain scale 0/10 ?. 10:52:54 IV patent on arrival in right forearm with 0.9% NaCl at [facility]. 10:52:57 Lab results completed and on chart. 10:53:03 Right Radial & Left Groin area was prepped with chlora-prep and draped in sterile fashion 10:53:04 Alarms reviewed by R. N. 10:53:04 Sharps counted by scrub and verified by R.N. 10:53:06 Use device set Radial Dx or PCI 10:53:07 ACIST Syringe (79103) opened to sterile field. 10:53:08 Medline Cath Pack ([id number]) opened to sterile field. 10:53:08 Bag Decanter (2002S) opened to sterile field. 10:53:09 DIAGNOSTIC WIRE .035 260cm J wire (044497) opened to sterile field. 10:53:09 ACIST Hand Control (93560) opened to sterile field. 10:53:10 ACIST Manifold (32036) opened to sterile field. 10:53:11 Tegaderm 4 x 4 (1626W) opened to sterile field. 10:53:12 MBrace Wrist Support ([id number]) opened to sterile field. 10:53:13 SHEATH 6Fr Prelude Radial ([id number]) opened to sterile field. 10:53:24 Use device set TAUTH PCI 10:53:27 INFLATOR Merit BasixCompak (QJ0083) opened to sterile field. 10:53:32 CHOICE PT Extra Support 182cm wire ([id number]) opened to sterile field. 11:02:40 Zero performed for pressure channel P1 11:02:44 Zero performed for pressure channel P1 11:09:28 Final Timeout: patient, procedure, and site verified with staff and physician. All members of the team are in agreement. 11:09:32 Right Radial site verified by team. 11:09:34 Physical assessment completed. ASA score P 2 - A patient with mild systemic disease as per Ruben Rodriguez MD. 11:09:38 Sedation plan: IV Moderate Sedation Medication:Versed, Fentanyl 11:12:10 Fentanyl 50 mcg I.V. was administered by James Franco RN; for sedation; 11:12:16 Versed 1 mg I.V. was administered by James Franco RN; for sedation; 11:15:04 GUIDE 6FR XBLAD 4.0 catheter ([id number]) opened to sterile field. 11:15:09 Procedure started. 11:15:14 Local anesthetic to right radial artery with Lidocaine 2% by Ruben Rodriguez MD.INITIAL ACCESS ONLY 11:15:35 Fentanyl 50 mcg I.V. was administered by James Franco RN; for sedation; 11:15:39 Versed 1 mg I.V. was administered by James Franco RN; for sedation; 11:15:49 Radial Cocktail (Verapomil 2mg/Nitro 400mcg/Heparin 1500units) 1 syringe I.A. was administered by Ruben Rodriguez MD; for vasodilation; 11:15:52 A 6 Fr Short sheath was inserted into the Right Radial artery 11:16:13 Heparin Bolus 4000 units I.V. was administered by James Franco RN; for anticoagulation; 11:16:29 6 Fr XBLAD 4.0 guide catheter was inserted over the wire 11:17:34 CHOICE PT ES wire advanced. 11:18:29 Shannon [place] Eagleye IVUS Catheter (22585K) opened to sterile field. 11:18:47 IVUS catheter advanced over wire. 11:20:03 IVUS pass to LAD lesion performed. 11:20:04 IVUS catheter removed over wire. 11:22:09 Place stent Inflation Number: 1 A TATE RX 3.0 x 38 stent ([id number]) was prepped and advanced across the Mid LAD. The stent was deployed at 13 VALERI for 0:12 (min:sec). 11:22:38 Stent catheter was removed intact over wire. 11:22:38 Wire removed. 11:22:39 Guide catheter removed. 11:23:12 Sheath removed intact; hemostasis achieved with Mechanical Compression to the Right Radial artery. 11:23:14 Procedure ended.(Physican Out) 11:23:48 Fluoroscopy time 03.00 minutes. 11:23:53 Flurop Dose total: 389 11:23:53 Fluoroscopy dose: 389 mGy 11:23:57 Contrast amount:Isovue 370 58ml. 11:24:02 Sharps counted by scrub and verified by R.N. 11:24:05 TR band inflated with 10cc of air. 11:24:06 Insertion/operative site no bleeding no hematoma. 11:24:18 Post right radial artery:stable, clean and dry 11:24:21 Post Procedure Pulses reassessed and unchanged 11:24:24 Post-procedure physical assessment completed. ASA score P 2 - A patient with mild systemic disease as per Ruben Rodriguez MD. 11:24:30 Post procedure rhythm: unchanged. 11:24:34 Estimated blood loss: 5 ml 11:24:35 Post procedure instruction explained to patient.Patient verbalizes understanding. 11:24:36 Patient needs reinforcement of post procedure teaching. 11:24:53 TR BAND Standard ([id number]) opened to sterile field. 11:25:24 Procedure Complication : No complications 11:25:26 See physician's report for complete and final results. 11:25:58 Procedure type changed to Cath procedure, Diagnostic procedure, FFR/IVUS, Intra-Coronary IVUS Initial, PCI procedure, Coronary Stent, Coronary Stent Initial 11:26:25 Procedure and supply charges have been captured, reviewed, submitted and are correct. 11:27:03 Vital chart was stopped 11:27:05 Report given to Pre/Post Procedure Room. 11:27:08 Patient transfered to Pre/Post Procedure Room with Stretcher. 11:27:15 Procedure ended. 11:27:15 Full Disclosure recording stopped 11:27:19 End room use (Document Last) Intervention Summary Intervention Notes Time ActionType Lesion and Equipment Used Action# Pressure Duration Attributes 11:22:09 Place stent Mid LAD TATE RX 3.0 x 1 13 00:12 38 stent ([id number]) Device Usage Item Name Manufacture Quantity Catalog Number Hospital Part Current Minimal Lot# / Charge Number Stock Stock Serial# Code ACIST Syringe Acist 1 26302 090565 432854 099122 20 (02868) Medical Efizity Inc Medline Cath Cardinal 1 [id number] 511034 89278 733921 5 Pack Health ([id number]) Bag Decanter Microtek 1 228140 52863 296883 5 () Medical Inc. DIAGNOSTIC WIRE St [place] 1 315014 112565 963686 925549 30 .035 260cm J wire (095347) ACIST Hand Acist 1 50050 590652 027589 662795 5 Control (06355) Medical Systems Inc ACIST Manifold Acist 1 00226 570403 679868 203080 5 (83825) Medical Systems Inc Tegaderm 4 x 4 3M 1 1626W 097061 173125 482889 5 (1626W) MBrace Wrist Advanced 1 140-0250-00 463177 48206 158707 5 Support Vascular ([id number]) Dynamics SHEATH 6Fr Merit 1 [id number] 794209 907425 045690 5 Prelude Radial Medical ([id number]) INFLATOR Merit Merit 1 GU5730 882861 688428 336848 15 [employer] Medical ([id number]) CHOICE PT Extra [place] 1 [id number] 046331 677578 903296 5 Support 182cm Scientific wire ([id number]) GUIDE 6FR XBLAD Cardinal 1 [id number] 928912 693930 382836 3 4.0 catheter Health ([id number]) Shannon Shannon 1 58650Y 963699 711692 236240 8 [place] IVUS Catheter (93164N) TATE RX 3.0 x Medtronic 1 [id number] 277804 2319430 685248 5 [id number] 38 stent ([id number]) TR BAND Terumo 1 [id number] 917963 557069 371784 40 Standard ([id number]) Signature Audit [place] Stage Time Signature Unsigned Intra-Procedure 01/11/2018 Debra 11:27:30 AM Counts RT(R) Signatures Monitor : Debra Signature : Counts RT Date : Time : [facility] [address] [place] [address]
[~2018-01-11 08:53] MED LIST: BAYER CHEWABLE81 MG PO; CARDURA4 MG PO; COZAAR25 MG PO; MAG-OXIDE400 MG PO; NIFEDIPINE ER90 MG PO; PAMELOR10 MG PO; PLAVIX75 MG PO; PRILOSEC2.5 MG PO; TOPROL XL100 MG PO
[2018-01-11 09:34] VITALS: BP 189/102; Ht 177.8 cm; Wt 80.9 kg
[2018-01-11 10:10] LABS: BASOPHILS 0.7 % (0-2); EOSINOPHILS 1.4 % (0-7); HEMATOCRIT 47.3 % (42.0-54.0); HEMOGLOBIN 16.8 g/dL (13.5-17.5); IMMATURE GRANULOCYTES 0.3 % (0-5); LYMPHOCYTES 23.6 % (15-50); MCH 32.2 pg (26.0-34.0); MCHC 35.5 g/dL (31.0-37.0); MCV 90.8 fL (80.0-100.0); MEAN PLATELET VOLUME 10.7 fL (7.4-10.4); MONOCYTES 7.5 % (2-11); NEUTROPHILS 66.5 % (40-80); PLATELET COUNT 227 10x3/uL (130-400); RBC 5.21 10x6/uL (4.20-6.10); RDW 13.4 % (11.5-14.5); WBC 10.5 10x3/uL (4.8-10.8)
[2018-01-11 10:17] LABS: CHLORIDE - SERUM 103 mmol/L (98-107); POTASSIUM - SERUM 4.1 mmol/L (3.5-5.1); SODIUM 140 mmol/L (136-145)
[2018-01-11 10:21] LABS: CALC OSMOLALITY 282 mosm/kg (275-300); CREATININE - SERUM 0.9 mg/dL (0.6-1.3); GLUCOSE 112 mg/dL (74-106); UREA NITROGEN 20 mg/dL (7-18); eGFR NON AFRICAN AMERICAN 88 mL/min (90-120)
== END | disposition home or self-care (01) ==
LOC: D.CATH 08:53 → EDBD 08:53 → D.CATH 11:30
PROVIDERS: Internal Medicine Interventional Cardiology
DX: I25.119 Atherosclerotic heart disease of native coronary artery with unspecified angina pectoris (principal); Z95.5 Presence of coronary angioplasty implant and graft; Z01.812 Encounter for preprocedural laboratory examination
CPT/HCPCS: 92978; C9600

== ENCOUNTER → 2018-03-02 18:03 | Outpatient (CLI) | payer MEDICARE, BC ==
[2018-01-11 09:34] VITALS: BMI 25.5
== END | disposition home or self-care (01) ==
LOC: D.MRI 18:00
DX: M48.062 Spinal stenosis, lumbar region with neurogenic claudication (principal)